=== PATIENT | male | born 2000 | race Hispanic/Latino ===

== ENCOUNTER 2024-02-08 18:43 | Emergency (ER) | payer SELFPAY ==
[2024-02-08 18:48] VITALS: BP 130/77
[2024-02-08 19:05] LABS: % Basophils 0.7 % (0-2); % Eosinophils 0.7 % (0-6); % Immature Granulocytes 0.2 % (0-0.5); % Lymphocytes 42.7 % (20.5-51.1); % Neutrophils 47.7 % (42.2-75.2); Absolute Basophils 0.1 10^3/uL (0-0.2); Absolute Eosinophils 0.1 10^3/uL (0-0.7); Absolute Lymphocytes 3.7 10^3/uL (1.2-3.4); Absolute Monocytes 0.7 10^3/uL (0.1-0.6); Absolute Neutrophils 4.1 10^3/uL (1.4-6.5); Hematocrit 43.1 % (39.0-52.0); Hemoglobin 15.5 g/dL (13.0-18.0); Mean Corpuscular Hgb 27.5 pg (27.0-31.0); Mean Corpuscular Volume 76.6 fL (80.0-94.0); Mean Platelet Volume 9.2 fL (7.4-10.4); Nucleated Red Blood Cells % 0 % (-); Platelet Count 231 10^3/uL (130-400); Red Blood Cell Count 5.63 10^6/uL (4.70-6.10); Red Cell Dist. Width 12.8 % (11.5-14.5); White Blood Cell Count 8.6 10^3/uL (4.8-10.8)
[2024-02-08 19:26] LABS: ALT (SGPT) 24 U/L (0-50); AST (SGOT) 25 U/L (17-59); Albumin 5.4 g/dl (3.5-5.0); Alkaline Phosphatase 76 U/L (38-126); Blood Urea Nitrogen 18 mg/dl (9-20); Calcium 9.8 mg/dl (8.4-10.2); Carbon Dioxide 26 mmol/L (22-30); Chloride 103 mmol/L (98-107); Glucose 111 mg/dl (70-99); Potassium 3.9 mmol/L (3.5-5.1); Sodium 139 mmol/L (135-145); Total Bilirubin 0.7 mg/dl (0.2-1.3); eGFR > 60.00
[2024-02-08 20:22] VITALS: BP 114/64; BMI 22.2
--- NOTE | 2024-02-08 20:28 | ED.GENMED ---
History of Present Illness
General
Chief Complaint: Rectal Bleeding
Source: patient
Exam Limitations: none and other (Language line used for translation)
Time Seen by Provider: 02/08/24 20:20
Nursing documentation reviewed up to this point in time: agreed with
History of Present Illness
History of Present Illness:
Patient is a 23-year-old male who come presents to the ER for evaluation. Patient is concerned that there is blood in his stool. He reports his stools at times but sometimes he thinks dark. He feels tired. He denies any abdominal pain nausea
vomiting fever chills. He reports he does not have a great appetite he eats 1 meal per day. He lives with his mom. He does not have a doctor he does not work.
He does admit to intermittently using marijuana and has used cocaine. He reports ever since he tried ' a line of cocaine,' 6 months ago he does not feel the same.
Review of Systems
Review of Systems
Allergies reviewed?: Yes
All Other Systems: ROS reviewed and negative except as documented in HPI and ROS
Constitutional: Reports fatigue; Denies fever
EENT: Reports no symptoms
Cardiac: Reports no symptoms
ABD/GI: Reports other (Concerned about stool color)
: Reports no symptoms
Musculoskeletal: Reports no symptoms
Skin: Reports no symptoms
Neurological: Reports no symptoms
Psychiatric: Reports no symptoms
Phy Exam
General Physical Exam
General Presentation: no apparent distress
General age: appears stated age
General Skin: warm and dry
General Habitus: normal
General Mental: alert
General Hydration: appears well hydrated
Cardiovascular Exam
Cardiovascular Exam: regular rate/rhythm, no murmur and normal peripheral pulses
Pulmonary Exam
Pulmonary Exam: lungs clear and no respiratory distress
Gastrointestinal Exam
Gastrointestinal Exam: non tender, soft and other (refused rectal exam )
Neurological Exam
Neurological Exam: alert and oriented x3
[place] Coma Scale
Eye Opening: Spontaneous
Verbal Response: Oriented
Motor Response: Obeys Commands
GCS Total Score: 15
Musculoskeletal Exam
Musculoskeletal Exam: full ROM
Skin Exam
Skin Exam: normal color and warm/dry
Psychiatric Exam
Psychiatric Exam: normal mood/affect
Course
Orders/Labs/Results
Orders:
Orders
02/08/24 19:00
Type+Screen Urgent
Complete Blood Count/With Diff Urgent
Comprehensive Metabolic Panel Urgent
Abnormal Lab Results
02/08/24
19:00
MCV 76.6 L fL
(80.0-94.0)
Absolute Lymphs (auto) 3.7 H 10^3/uL
(1.2-3.4)
Absolute Monos (auto) 0.7 H 10^3/uL
(0.1-0.6)
Glucose 111 H mg/dl
(70-99)
Albumin 5.4 H g/dl
(3.5-5.0)
02/08/24 19:00
02/08/24 19:00
Vital Signs
Initial and Last Documented VS:
Initial Vital Signs
Temp Pulse Resp BP Pulse Ox
97.8 F 76 20 130/77 97
02/08/24 18:48 02/08/24 18:48 02/08/24 18:48 02/08/24 18:48 02/08/24 18:48
Last Documented Vital Signs
Temp Pulse Resp BP Pulse Ox
97.8 F 84 18 114/64 100
02/08/24 18:48 02/08/24 20:22 02/08/24 20:22 02/08/24 20:22 02/08/24 20:22
MDM/Problems Addressed
Differential Diagnosis Includes:
Not limited to GI GI bleed anemia
MDM/Problems Addressed:
Language line used and assistance for translation. Patient is a 23-year-old male who presents to the ER for evaluation. Patient is been intermittently fatigued since 6 months ago since he last used cocaine. He also was concerned that his stool
have blood in there. He describes his stool as yellow and dark. He denies any abdominal pain nausea vomiting. He lives at home with his mom. He does not work. He denies any fever chills chest pain shortness of breath nausea vomiting. He has no
acute distress. He presents awake alert abdomen soft nontender. He refused rectal exam. His labs are normal including normal hemoglobin. No acute findings here in the ER he is well-appearing and very nontoxic looking.
Will d/c [facility] follow-up for [facility]. All instructions reviewed with language line
*Critical Care Note
Total Time (30-74mins, 75-104mins- exclusive of procedures): Not Applicable
ED Attending Note
-
Portions of this chart may have been created with voice recognition software.� Occasional wrong word or��sound alike� substitutions may have occurred due to the inherent limitations of voice recognition software.
Discharge Plan
Departure
Patient Disposition: Home (Routine Discharge)
Date of Disposition: 02/08/24
Time of Disposition: 21:14
Patient with high blood pressure during this ER visit?: Yes
Condition: Fair
Covid-19: Not Applicable
Discharge Problem:
Fatigue
Instructions: Fatigue (DC)
Prescriptions:
No Action
meclizine 25 MG tablet
25 mg PO Q8HPRN PRN (Reason: nausea or vertigo) Qty: 10 0RF
naproxen [Naprosyn] 500 MG tablet
500 mg PO Q12H PRN (Reason: back pain) Qty: 20 0RF
ibuprofen 400 MG tablet
400 mg PO Q6HPRN PRN (Reason: pain) Qty: 24 0RF
Referrals:
[facility] [Provider Group]
[facility] [Outside]
NONE,* [Family Provider] -
Activity Restrictions/Additional Instructions:
Follow-up with either [facility] or [facility]: [phone] for further reevaluation of symptoms
Interventions
Interventions:
*Risk Screen - Suicide Last Done: 02/08/24 18:48
*General Assessment Last Done: 02/08/24 18:48
*Neglect/Abuse Screening Last Done: 02/08/24 18:48
QI-Dulsds-Mosiadfowu Assessment Last Done: 02/08/24 20:22
ED- Cardiac Assessment Last Done: 02/08/24 20:22
ED- Pulmonary Assessment Last Done: 02/08/24 20:22
Discharge Date and Time
Print Language: CZECH
[2024-02-08 21:25] VITALS: BP 111/78
== END 2024-02-08 21:25 | disposition home or self-care (01) ==
LOC: EMR 18:43
PROVIDERS: Emergency Medicine; EMERGENCY PHYSICIAN Emergency Medicine
DX: R53.83 Other fatigue (principal)
CPT/HCPCS: 99283; 80053; 85025; 86850; 86900; 86901

== ENCOUNTER 2024-02-10 02:23 | Emergency (ER) | payer SELFPAY ==
[2024-02-10 02:28] VITALS: BP 120/67
[2024-02-10 03:39] VITALS: BP 115/57
[2024-02-10 03:42] VITALS: BP 115/57
[2024-02-10 04:00] VITALS: BP 119/64
[2024-02-10 05:00] VITALS: BP 104/80
--- NOTE | 2024-02-10 05:06 | ED.GENMED ---
History of Present Illness
General
Chief Complaint: Headache
Source: patient and previous hospital records (ED visit just 2 days ago with multiple seemingly unrelated complaints including fatigue, bright red blood per rectum. Unremarkable laboratory studies.)
Exam Limitations: none
Time Seen by Provider: 02/10/24 03:46
Nursing documentation reviewed up to this point in time: agreed with
History of Present Illness
History of Present Illness:
This is a 23-year-old male who initially presented to this ED just a day and a half ago with complaints of generalized fatigue and concern for possible blood in his stool. Reports his stools have been ranging from yellow to dark in color. He has
had no episodes of bright red blood per rectum. No abdominal pain, no nausea nor vomiting. No fevers or chills. No change in weight.
Labs were unremarkable. He refused rectal exam. Exam was overall benign and unremarkable.
He presents tonight with concerns for intermittent occipital headache occurring generally 3-4 times per week over the past 3 to 6 months.
He states headache began shortly after snorting cocaine July of this year and he is concerned that intermittent cocaine use is cause for his various seemingly unrelated concerns.
Although significant worry regarding his overall health he continues to sporadically use cocaine, last use was 2 weeks ago.
Occipital headaches have not been associated with nausea nor vomiting, no vision difficulties. Headaches seem worse when he is using his phone, worse at nighttime and admits that he is generally up all night long, sleeps during the day.
No dizziness nor lightheadedness. He has not been taking anything for pain. He denies neck pain. He has not had a rash.
He takes no medicines on a daily basis.
Past History
Past History
ED Past Medical History: None
ED Past Surgical History: None
Social History
Tobacco: Non-smoker
Drug: Marijuana and Cocaine
Personal: Single
Living: with family
Employment: Not employed
Family History
Family History: Other (Noncontributory)
Phy Exam
Physical Exam
Physical Exam:
GENERAL: 23-year-old male appears his stated age, bright and alert, pleasant, appears in no acute distress. Mother is accompanying.
EYE: pupils equal and reactive. Extraocular muscles intact. Anicteric
NECK: Supple, nontender, no meningismus, no significant adenopathy.
ENT: posterior pharynx is clear, oral mucosa is moist. TM clear b/l, nares patent.
CARDIAC: Regular rate and rhythm. no murmur.
LUNGS: Clear breath sounds bilaterally, no acute respiratory distress, no wheezes/rales/rhonchi
ABDOMEN: Soft, nondistended, without focal tenderness, no r/g, normoactive BS.
NEUROLOGICAL: Alert and oriented x3, no focal neuro deficits. Gait is larson and steady.
SKIN: Warm and dry, normal color, skin intact. No rash.
MUSCULOSKELETAL: No C/C/E. peripheral pulses are full and equal b/l. No palpable tenderness.
PSYCH: Normal and appropriate interaction.
Course
Orders/Labs/Results
Orders:
Orders
02/10/24 04:37
CT Head W/o Iv Contrast Urgent
Comment:
Reason For Exam: chronic, intermitt headache x 3-6 months
Vital Signs
Initial and Last Documented VS:
Initial Vital Signs
Temp Pulse Resp BP Pulse Ox
98.5 F 78 14 120/67 98
02/10/24 02:28 02/10/24 02:28 02/10/24 02:28 02/10/24 02:28 02/10/24 02:28
Last Documented Vital Signs
Temp Pulse Resp BP Pulse Ox
98.5 F 65 14 119/64 99
02/10/24 02:28 02/10/24 04:30 02/10/24 04:15 02/10/24 04:00 02/10/24 04:36
MDM/Problems Addressed
Differential Diagnosis Includes:
Chronic intermittent headache over the past 6 months, occipital in nature.
I suspect tension headache.
May be cocaine related headache however reports last cocaine use was 2 weeks ago.
Due to prolonged nature will check CT of the head.
Encouraged to discontinue all recreational drug use, especially cocaine.
Unremarkable laboratory studies just 2 days ago. No indication to repeat.
*Radiology
Radiology exam reviewed: radiology read reviewed (CT of the head is unremarkable.)
*Pulse Oximetry
Patient hypoxic: no
*Critical Care Note
Total Time (30-74mins, 75-104mins- exclusive of procedures): Not Applicable
Update Note
Update Note:
CT of the head is unremarkable.
Patient remains well in appearance.
I suspect tension headache and recommend Tylenol versus ibuprofen as needed for headache.
Will refer to [facility] for [facility].
ED Attending Note
-
Portions of this chart may have been created with voice recognition software.� Occasional wrong word or��sound alike� substitutions may have occurred due to the inherent limitations of voice recognition software.
Discharge Plan
Departure
Patient Disposition: Home (Routine Discharge)
Date of Disposition: 02/10/24
Time of Disposition: 05:33
Patient with high blood pressure during this ER visit?: No
Condition: Good
Discharge Problem:
Chronic tension headache
Instructions: Migraines (DC)
Prescriptions:
No Action
meclizine 25 MG tablet
25 mg PO Q8HPRN PRN (Reason: nausea or vertigo) Qty: 10 0RF
naproxen [Naprosyn] 500 MG tablet
500 mg PO Q12H PRN (Reason: back pain) Qty: 20 0RF
ibuprofen 400 MG tablet
400 mg PO Q6HPRN PRN (Reason: pain) Qty: 24 0RF
Referrals:
[facility] [Outside] - Call in 1-3 days for appt
Interventions
Interventions:
*Risk Screen - Suicide Last Done: 02/10/24 03:46
*General Assessment Last Done: 02/10/24 03:46
*Neglect/Abuse Screening Last Done: 02/10/24 03:46
ED- Fall Risk Assessment Last Done: 02/10/24 03:46
*ED COVID-19 Vaccine History Last Done: 02/10/24 03:46
ED- Neurological Assessment Last Done: 02/10/24 03:46
Discharge Date and Time
Print Language: ROMANIAN
== END 2024-02-10 05:43 | disposition home or self-care (01) ==
LOC: EMR 02:23
PROVIDERS: EMERGENCY PHYSICIAN Emergency Medicine
DX: G44.229 Chronic tension-type headache, not intractable (principal)
CPT/HCPCS: 99284; 70450